=== PATIENT | female | born 1985 | race African-American/Black ===

== ENCOUNTER 2017-05-26 09:25 | Day surgery (SDC) | payer OTHER ==
[2017-05-26 10:23] VITALS: BMI 39.7
[2017-05-26] MEDS ORDERED: PROPOFOL 20 ML ONE ×2 (10:52)
--- NOTE | 2017-05-26 11:11 | PROC ---
Endoscopy Procedure Endoscopy procedure completed. Please see scanned procedure report.
[2017-05-26 11:43] VITALS: TEMP 98.4
[2017-05-26 12:27] VITALS: BP 123/78; PULSE 60
== END 2017-05-26 12:29 | disposition home or self-care (01) ==
LOC: JASU-ENDO 09:25
PROVIDERS: ATTEND Internal Medicine Gastroenterology
PROC: 0DJ08ZZ Inspection of Upper Intestinal Tract, Via Natural or Artificial Opening Endoscopic (ICD-10-PCS; 2017-05-26)
PROC: 0DJD8ZZ Inspection of Lower Intestinal Tract, Via Natural or Artificial Opening Endoscopic (ICD-10-PCS; principal; 2017-05-26 11:00)
DX: R93.8 Abnormal findings on diagnostic imaging of other specified body structures (principal)
CPT/HCPCS: 84703

== ENCOUNTER 2017-11-14 12:16 | Day surgery (SDC) | payer OTHER ==
[2017-11-13 17:34] VITALS: BMI 39.4
[2017-11-14] MEDS ORDERED: LIDOCAINE HCL/PF 2% SDV 5ML VIAL ONE (18:45)
[2017-11-14] MEDS ORDERED: KETOROLAC TROMETHAMINE 30 MG/1 ML VIAL ONE (18:45)
[2017-11-14] MEDS ORDERED: PROPOFOL 20 ML ONE (18:46)
[2017-11-14] MEDS ORDERED: MIDAZOLAM HCL 2 MG/2 ML SINGLE DOSE VIAL ONE ×4 (18:46→19:11)
[2017-11-14] MEDS ORDERED: LIDOCAINE HCL 1%, 10 MG/ML (20ML VIAL) NR ONE (19:02)
[2017-11-14] MEDS ORDERED: ONDANSETRON 4 MG/2 ML VIAL IVPUSH PRN (19:29)
[2017-11-14] MEDS ORDERED: PROMETHAZINE HCL 25 MG/1 ML VIAL IVPUSH PRN (19:29)
[2017-11-14] MEDS ORDERED: oxyCODONE HCL 5 MG TABLET PO PRN (19:29)
[2017-11-14] MEDS ORDERED: LACTATED RINGERS SOLUTION 1,000 ML IV SCH (19:30)
--- NOTE | 2017-11-14 19:34 | OP ---
Operative Note - Note: Operative Date: 11/14/17 Pre-Operative Diagnosis: KRISTEN 3 Operation: Right posterior vulvectomy Findings: 5 mm pedunculated lesion on right lateral posterior vulva Post-Operative Diagnosis: Same as Pre-op Surgeon: Farheen Galeana Anesthesiologist/MUSEUM ASSISTANT: Obi Fisher Anesthesia: Local, MAC Specimens Removed: right posterior vulva Estimated Blood Loss (mls): 10 Operative Report Dictated: Yes
[2017-11-14 20:46] VITALS: BP 113/65; PULSE 61; TEMP 97.8
--- NOTE | 2017-11-14 21:19 | OP ---
DATE OF OPERATION: 11/14/2017 PREOPERATIVE DIAGNOSIS: KRISTEN-3 (vulvar intraepithelial neoplasia) . POSTOPERATIVE DIAGNOSIS: KRISTEN-3 (vulvar intraepithelial neoplasia) . PROCEDURE: Right posterior vulvectomy. SURGEON: Farheen Galeana MD ANESTHESIA: Moderate sedation and local. ESTIMATED BLOOD LOSS: 10 mL. COMPLICATIONS: None. INDICATIONS: This is a 32-year-old with history of a vulvar biopsy July 07, 2017, that showed KRISTEN-3. The patient reports since then it has been increasing in size. On exam, an approximately 5 mm papule was seen on the right posterolateral vulva. The patient was counseled regarding surgical management, risks, benefits, indications, alternatives were discussed with the patient. All questions were answered. Informed consent was signed. FINDINGS: Upon colposcopy, no other lesions on the vulva were seen. After 5% acetic acid application to the entire vulva and perianal area, the lesion was approximately 5 mm base and umbilicated and appeared almost like a skin tag. PROCEDURE: The patient was taken to the operating room, placed in the dorsal supine position. Moderate sedation was achieved. She was placed in the dorsal lithotomy position in Tiago stirrups and prepped and draped in normal sterile fashion. Approximately 20 mL of 1% lidocaine with epinephrine was injected into the right posterior vulvar area. After adequate anesthesia was achieved, an elliptical area was demarcated using the marking pen. Using the 15 blade scalpel, excision was made in an elliptical fashion and carried down to the subcutaneous fat. The excision was continued with the Bovie electrocautery to the subcutaneous fat. Excellent hemostasis was achieved. A running continuous fashion stitch of 3-0 Vicryl was performed and multiple interrupted stitches of 3-0 Vicryl were performed. Excellent hemostasis was seen. The patient was awakened and transferred in stable condition to the PACU. Sponge, needle, instrument counts were correct x2. The specimen was marked at its apex at 12 o'clock. Farheen Galeana M.D. [id number]
--- NOTE | 2017-11-17 17:59 | PATH ---
Surgical Pathology Report Patient Name: SOILA CARDENAS [facility]. Rec. 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 SURGICAL MARGINS ARE NEGATIVE. Comment: Immunohistochemical stains performed at [place], [place] ([id number]) and interpreted at [facility] show the lesion is strong and diffusely positive for p16. Proliferative marker, Ki-67, was utilized evaluate this case. HPV in situ hybridization (high risk) is pending. Findings will be reported as an addendum. Electronically Signed Henny Luis M.D. Gross Description Received in formalin labeled "right vulva posterior," is a 2.2 x 1.5 cm johnson-brown, elliptical portion of skin excised to a depth of 0.8 cm. There is a suture marking the 12:00 tip, per the surgeon. The epidermal surface displays a 0.8 x 0.4 cm central, raised lesion. The lesion is 0.4 cm from the closest radial margin (5:00). The specimen is inked as follows: 12:00 to 3:00 to 6:00 green; 6:00 to 9:00 to 12:00 blue; 12:00 tip red. The specimen is serially sectioned from superior to inferior. The specimen is entirely and sequentially submitted in 5 cassettes from 12:00 to 6:00 (12:00 tip in cassette 1, 6:00 tip in cassette 5). /11/15/201711/15/2017
== END 2017-11-14 21:43 | disposition home or self-care (01) ==
LOC: JASU-SURG 12:16 → J8W 20:40 → JASU-SURG 21:43
PROVIDERS: ATTEND Obstetrics & Gynecology Gynecologic Oncology
PROC: 0UBM0ZZ Excision of Vulva, Open Approach (ICD-10-PCS; principal; 2017-11-14 14:00)
DX: D07.1 Carcinoma in situ of vulva (principal)
CPT/HCPCS: 84703; 88309-TC; 94760

== ENCOUNTER 2018-07-16 06:22 | Emergency (ER) | payer OTHER ==
[2018-07-16 06:56] VITALS: BP 111/68; PULSE 70; TEMP 98.4
--- NOTE | 2018-07-16 07:52 | PDOC ---
History of Present Illness - General Chief Complaint: Pain Stated Complaint: YEAST INFECTION Time Seen by Provider: 07/16/18 07:41 History Source: Patient Exam Limitations: No Limitations - History of Present Illness Initial Comments: 07/16/18 07:47 32-year-old Female presents to ED with labia itching and whitish discharge the past 2 days without dysuria, abdominal pain, fever or chills. Patient states does get yeast infections often which occurs after menstrual cycle. Patient states has not take any medications on a daily basis to prevent yeast infections nor did she eat yogurt or other food products with live cultures. Timing/Duration: other Severity: mild Associated Symptoms: reports: denies symptoms Past History - Travel Traveled outside of the country in the last 30 days: No Close contact w/someone who was outside of country & ill: No - Past Medical History Allergies/Adverse Reactions: Allergies Allergy/AdvReac Type Severity Reaction Status Date / Time No Known Allergies Allergy Verified 11/14/17 12:46 Home Medications: Ambulatory Orders Fluconazole [Diflucan] 150 mg PO ONCE #1 tablet 07/16/18 Miconazole Nitrate [3 Day Vaginal] 1 applic TP BID #1 tube 07/16/18 Anemia: No Asthma: No Cancer: No Cardiac Disorders: No CVA: No COPD: No CHF: No Dementia: No Diabetes: No GI Disorders: No Disorders: No HTN: No Hypercholesterolemia: No Liver Disease: Yes (MASS ON LIVER, TO HAVE FOLLOWUP) Seizures: No Thyroid Disease: No - Surgical History Appendectomy: Yes (COLONOSCOPY,EGD) - Suicide/Smoking/Psychosocial Hx Smoking History: Current some day smoker Have you smoked in the past 12 months: No Number of Cigarettes Smoked Daily: 3 Information on smoking cessation initiated: No Hx Alcohol Use: No Drug/Substance Use Hx: No Substance Use Type: None Hx Substance Use Treatment: No Patient Lives Alone: No Lives with/in: spouse/SO Review of Systems - Review of Systems Able to Perform ROS?: No Is the patient limited Divehi proficient: No Constitutional: No: Symptoms Reported ABD/GI: No: Symptoms Reported : No: Dysuria, Discharge, Frequency Musculoskeletal: No: Symptoms Reported Integumentary: Yes: Pruritus Hematologic/Lymphatic: No: Symptoms Reported *Physical Exam - Vital Signs Last Vital Signs Temp Pulse Resp BP Pulse Ox 98.4 F 70 20 111/68 99 07/16/18 06:45 05/13/19 06:45 07/16/18 06:45 07/16/18 06:45 07/16/18 06:45 - Physical Exam General Appearance: Yes: Nourished, Appropriately Dressed. No: Apparent Distress Female Pelvic Exam: positive: discharge (white curd-like discharge). negative: normal external exam (noted excoriation to the labia majora), vaginal bleeding Gastrointestinal/Abdominal: positive: Soft. negative: Tenderness Musculoskeletal: positive: Normal Inspection Integumentary: positive: Normal Color, Warm, Moist Medical Decision Making - Medical Decision Making 07/16/18 07:49 Chief complaint: Labia itching worse at night the past 2 days along with whitish discharge. Patient with history of recurrent yeast infection. Exam: Positive Maria vulvovaginitis Plan: Diflucan by mouth 1 along with topical miconazole *DC/Admit/Observation/Transfer Diagnosis at time of Disposition: Yeast infection - Discharge Dispostion Disposition: HOME Condition at time of disposition: Good - Prescriptions Prescriptions: Fluconazole [Diflucan] 150 mg PO ONCE #1 tablet Miconazole Nitrate [3 Day Vaginal] 1 applic TP BID #1 tube - Referrals - Patient Instructions Printed Discharge Instructions: DI for Vaginal Yeast Infection, True or False: Eating Yogurt Can Help Reduce Your Risk of Vaginal Yeast Inf Additional Instructions: Wear cotton underwear drink plenty of fluids and keep area clean and dry. Read over information enclosed Please take medication as prescribed. - Post Discharge Activity
== END 2018-07-16 07:56 | disposition home or self-care (01) ==
LOC: JER 06:22
DX: B37.9 Candidiasis, unspecified (principal); F17.210 Nicotine dependence, cigarettes, uncomplicated
CPT/HCPCS: 99281-25

== ENCOUNTER 2019-02-04 11:16 | Emergency (ER) | payer OTHER ==
[2019-02-04 11:28] VITALS: BMI 33.6
--- NOTE | 2019-02-04 12:09 | PDOC ---
History of Present Illness - General Chief Complaint: Pain Stated Complaint: ABD PAIN/ VOMITING History Source: Patient Exam Limitations: No Limitations - History of Present Illness Initial Comments: 02/04/19 13:18 33 yo F with a hx of fatty liver disease presents to the emergency department with epigastric pain that has been ongoing for 1 month with concurrent N/V/D for the past 2 days. Per the patient, her epigastric pain is burning in sensation, without radiation, currently asymptomatic but at its worst 10/10, without aggravating and relieving factors. The patient denies worsening of pain with food intake. Denies hx of gallbladder and pancreas disease. The patient states when she lies flat she has a rising burning sensation from the epigastric region to the base of the anterior neck. Denies the following: fevers , chills, lightheadedness, chest pain, SOB, dysuria, hematuria, and leg pain/ swelling. She had a syncopal episode yesterday after rising from her bed and standing. She fell backwards and hit the back of her head against the bed frame and was "out" for a few seconds. She endorses residual headaches. Allergies: NKDA Shx: Past History - Past Medical History Allergies/Adverse Reactions: Allergies Allergy/AdvReac Type Severity Reaction Status Date / Time No Known Allergies Allergy Verified 02/04/19 11:29 Home Medications: Ambulatory Orders Ondansetron [Zofran *Odt*] 4 mg SL DAILY PRN #7 od.tablet 02/04/19 Ranitidine Oral Solution [Zantac Oral Solution -] 150 mg NGT BID PRN #60 ml MDD 60 ml 02/04/19 Anemia: No Asthma: No Cancer: No Cardiac Disorders: No CVA: No COPD: No CHF: No Dementia: No Diabetes: No GI Disorders: No Disorders: No HTN: No Hypercholesterolemia: No Liver Disease: Yes (MASS ON LIVER, TO HAVE FOLLOWUP) Seizures: No Thyroid Disease: No - Surgical History Appendectomy: Yes (COLONOSCOPY,EGD) - Immunization History Immunization Up to Date: Yes - Psycho Social/Smoking Cessation Hx Smoking History: Current every day smoker Have you smoked in the past 12 months: No Number of Cigarettes Smoked Daily: 1 Information on smoking cessation initiated: No Hx Alcohol Use: Yes (SOCIALLY) Drug/Substance Use Hx: No Substance Use Type: None Hx Substance Use Treatment: No *Physical Exam - Vital Signs Last Vital Signs Temp Pulse Resp BP Pulse Ox 98 F 63 18 128/71 100 02/04/19 11:26 02/04/19 11:26 02/04/19 11:26 02/04/19 11:26 02/04/19 11:26 ED Treatment Course - LABORATORY CBC & Chemistry Diagram: 02/04/19 11:00 02/04/19 11:00 Discharge - Discharge Information Problems reviewed: Yes Clinical Impression/Diagnosis: Abdominal pain - Additional Discharge Information Prescriptions: Ondansetron [Zofran *Odt*] 4 mg SL DAILY PRN #7 od.tablet PRN Reason: Nausea Ranitidine Oral Solution [Zantac Oral Solution -] 150 mg NGT BID PRN #60 ml MDD 60 ml PRN Reason: Pain - Follow up/Referral Referrals: Garret Parr MD [Staff Physician] - - Patient Discharge Instructions Patient Printed Discharge Instructions: DI for Epigastric Pain Additional Instructions: Please return to the emergency department with any new or worsening symptoms or concerns. Please follow up with gastroenterology and/or your primary care physician within 72 hours. - Post Discharge Activity
[2019-02-04] MEDS ORDERED: ONDANSETRON 4 MG/2 ML VIAL IVPUSH ONE (12:11)
[2019-02-04] MEDS ORDERED: ACETAMINOPHEN 1000 MG/100 ML VIAL (NON FORMULARY) IVPB ONE (12:11)
[2019-02-04] MEDS ORDERED: SODIUM CHLORIDE 1,000 ML IV STA (12:11)
[2019-02-04] MEDS ORDERED: FAMOTIDINE 20 MG/50 ML IVPB 20 MG/50 ML MG IVPB ONE ×2 (12:33→12:45)
--- NOTE | 2019-02-04 12:40 | PDOC ---
Attending Attestation - Resident Resident Name: NayeliJean Carlos - ED Attending Attestation I have performed the following: I have examined & evaluated the patient, The case was reviewed & discussed with the resident, I agree w/resident's findings & plan, Exceptions are as noted - HPI HPI: 02/04/19 12:40 33-year-old female history of fatty liver presents with complaint of intermittent epigastric pain for the past month, patient describes it as a crampy sensation lasting minutes to hours without any associated exacerbating factors including eating, exertion. Patient endorses nausea as well as nonbilious nonbloody vomiting the last 3 days denies any fever, chills, chest pain, shortness of breath, dyspnea on exertion, dysuria. Pt does endorse intermittent nonbloody diarrhea. Patient denies any current abd pain. - Physicial Exam PE: 02/04/19 12:46 GENERAL: The patient is awake, alert, and fully oriented, Nontoxic - in no acute distress. HEAD: Normocephalic, atraumatic. EYES: extraocular movements intact, sclera anicteric, conjunctiva clear. ENT: Normal voice, Moist mucous membranes. NECK: Normal range of motion, supple LUNGS: Breath sounds equal, clear to auscultation bilaterally. No wheezes, no rhonchi, no rales. HEART: Regular rate and rhythm, normal S1 and S2 without murmur, rub or gallop. ABDOMEN: Soft, nontender, No guarding, no rebound. No CVA tenderness EXTREMITIES: Normal range of motion, no edema. NEUROLOGICAL: No facial assymetry, Normal speech, PSYCH: Normal mood, normal affect. SKIN: Warm, Dry, normal turgor, - Medical Decision Making 02/04/19 12:46 Differential for the patient's symptoms includes possible pancreatitis, gallbladder disease, gastritis. Will obtain blood work, will obtain ultrasound of the gallbladder will reassess Heart Score/ECG Review - ECG Impressions Comment:: 02/04/19 12:47 Twelve-lead EKG was performed and reviewed by me. There is normal sinus rhythm with a rate of 58 The axis is normal. The intervals are normal. There is normal R wave progression There are no ST or T wave abnormalities. Impression: Sinus bradycardia
[2019-02-04] MEDS ORDERED: ACETAMINOPHEN INJECTION 100 ML IVPB ONE (12:45)
[2019-02-04] MEDS ORDERED: ONDANSETRON 4 MG/2 ML VIAL ONE (12:45)
[2019-02-04 13:24] LABS: BASO % 0.3 % (0-2.0); EOS % 0.6 % (0-4.5); HEMATOCRIT 50.5 % (32.4-45.2); HEMOGLOBIN 17.5 GM/dL (10.7-15.3); LYMPH % 23.9 % (8-40); MCH 30.9 pg (25.7-33.7); MCHC 34.5 g/dl (32.0-36.0); MEAN CELL VOLUME 89.4 fl (80-96); MEAN PLT VOLUME 8.5 fl (7.5-11.1); MONO % 6.9 % (3.8-10.2); NEUT % 68.3 % (42.8-82.8); PLATELET COUNT 366 K/MM3 (134-434); RBC 5.65 M/mm3 (3.60-5.2); WHITE BLOOD COUNT 9.9 K/mm3 (4.0-10.0)
[2019-02-04 13:34] LABS: URINE APPEARANCE CLOUDY; URINE BILIRUBIN 1+ (NEGATIVE); URINE COLOR DK YELLOW; URINE GLUCOSE (UA) NEGATIVE (NEGATIVE); URINE KETONE 1+ (NEGATIVE); URINE LEUK ESTERASE NEGATIVE (NEGATIVE); URINE NITRITE NEGATIVE (NEGATIVE); URINE PROTEIN TRACE (NEGATIVE)
[2019-02-04 14:37] LABS: ALBUMIN 3.8 g/dl (3.4-5.0); ALK PHOS 81 U/L (45-117); BILIRUBIN,TOTAL 1.4 mg/dL (0.2-1); BLOOD UREA NITROGEN 6.7 mg/dL (7-18); CALCIUM 9.4 mg/dL (8.5-10.1); CHLORIDE 105 mmol/L (98-107); CO2 26 mmol/L (21-32); CREATININE 0.9 mg/dL (0.55-1.3); GLUCOSE,RANDOM 88 mg/dL (74-106); LIPASE < 10 U/L (73-393); SODIUM 135 mmol/L (136-145); TOT PROT 8.2 g/dl (6.4-8.2)
[2019-02-04 14:57] LABS: ANION GAP 5 MMOL/L (8-16); MAGNESIUM 2.5 mg/dL (1.8-2.4); POTASSIUM 5.7 mmol/L (3.5-5.1); SGOT/AST 48 U/L (15-37); SGPT/ALT 19 U/L (13-61)
[2019-02-04 15:33] VITALS: BP 122/68; PULSE 69; TEMP 97.9
--- NOTE | 2019-02-04 17:32 | EKG ---
Test Reason : Blood Pressure : / mmHG Vent. Rate : 058 BPM Atrial Rate : 058 BPM P-R Int : 164 ms QRS Dur : 078 ms QT Int : 432 ms P-R-T Axes : 009 025 021 degrees QTc Int : 424 ms SINUS BRADYCARDIA OTHERWISE NORMAL ECG NO PREVIOUS ECGS AVAILABLE Confirmed by JENELLE ZAZUETA MD ([id number]) on 02/04/2019 5:31:49 PM Referred By: Confirmed By:JENELLE ZAZUETA MD
== END 2019-02-04 15:15 | disposition home or self-care (01) ==
LOC: JER 11:16
PROC: 3E0337Z Introduction of Electrolytic and Water Balance Substance into Peripheral Vein, Percutaneous Approach (ICD-10-PCS; principal; 2019-02-04)
PROC: 3E033GC Introduction of Other Therapeutic Substance into Peripheral Vein, Percutaneous Approach (ICD-10-PCS; 2019-02-04)
PROC: 3E0337Z Introduction of Electrolytic and Water Balance Substance into Peripheral Vein, Percutaneous Approach (ICD-10-PCS; 2019-02-04)
PROC: 3E033NZ Introduction of Analgesics, Hypnotics, Sedatives into Peripheral Vein, Percutaneous Approach (ICD-10-PCS; 2019-02-04)
DX: R10.9 Unspecified abdominal pain (principal); R16.0 Hepatomegaly, not elsewhere classified; F17.210 Nicotine dependence, cigarettes, uncomplicated
CPT/HCPCS: 36415; 71045-TC-FY; 76705-TC; 80053; 81003; 82550; 82553; 83690; 83735; 84443; 84484; 84703; 85025; 87086; 93005; 93010; 99284-25; J0131; J7030

== ENCOUNTER 2021-03-25 04:58 | Day surgery (SDC) | payer OTHER ==
[2021-03-18 16:29] VITALS: BMI 31.3
[2021-03-25] MEDS ORDERED: ACETAMINOPHEN 500 MG TABLET (FP) PO ONE (11:00)
[2021-03-25 11:46] VITALS: TEMP 98.2
[2021-03-25 11:53] LABS: CSF COLOR COLORLESS (COLORLESS)
[2021-03-25 11:54] LABS: CSF APPEARANCE CLEAR (CLEAR); CSF WBC 0 mm3 (0-5)
[2021-03-25 11:57] LABS: BF GLUCOSE (CSF ONLY) 73 mg/dL (40-70)
[2021-03-25] MEDS ORDERED: SODIUM CHLORIDE 250 ML IV SCH (12:30)
[2021-03-25 13:05] VITALS: BP 106/72; PULSE 70
== END 2021-03-25 13:58 | disposition home or self-care (01) ==
LOC: JRADIR 04:58
PROVIDERS: ATTEND Psychiatry & Neurology Psychiatry
PROC: 009U3ZX Drainage of Spinal Canal, Percutaneous Approach, Diagnostic (ICD-10-PCS; principal; 2021-03-25)
DX: G61.81 Chronic inflammatory demyelinating polyneuritis (principal)
CPT/HCPCS: 36415; 62272; 81025; 82784; 82787; 82945; 83916; 84157; 86592; 87070; 87205